=== PATIENT | female | born 1950 | race Caucasian/White ===

== ENCOUNTER → 2017-07-22 | Day surgery (SDC) | payer OTHER ==
[~2017-07-22] VITALS: Ht 160 cm; Wt 75.7 kg
--- NOTE | 2017-07-22 10:23 | Operative Report ---
Operative/Inv Procedure Report Surgery Date: 07/22/17 Name of Procedure: Laparoscopic cholecystectomy Pre-Operative Diagnosis: Symptomatic cholelithiasis Post-Operative Diagnosis: Same Estimated Blood Loss: less than 50ml Surgeon/[employer] Machine Operator: Shana Burdick MD Anesthesia: general endotracheal tube Specimens: Gallbladder Complications: None Condition: Stable to recovery room Operative Indication: Patient is a 66-year-old woman who was been diagnosed with symptomatic cholelithiasis. Patient presents today for elective laparoscopic cholecystectomy. All risks, benefits, and alternatives of the procedure were explained to the patient detail. She expressed understanding and agreement with the same. Operative/Procedure Note Note: Patient was taken to the operating room and placed in supine position on the operating table. Bilateral lower extremity SCDs were placed. Preoperative antibiotics, vancomycin and ciprofloxacin, due to patient's extensive allergies were given. Anesthesia was established by the anesthesia team. Orogastric tube was placed. The left arm was tucked. All appropriate pressure points were padded, and the patient was secured to the operating table. The timeout was carried out. The abdomen was prepped and draped in the standard surgical fashion. A supraumbilical transverse midline incision was made through skin and subcutaneous tissues to the level of fascia. The fascia was incised longitudinally and the abdomen was entered. A 12 mm Salmeron trocar was placed within the abdomen under direct visualization. The abdomen was insufflated to 15 mmHg. The patient tolerated insufflation well. 3 additional 5 mm trochars were placed along the right subcostal margin approximately 2 fingerbreadths below the rib cage. The gallbladder was visualized and retracted cephalad and medially. The slight omental attachments to the gallbladder were taken down using electrocautery. The neck of the gallbladder was identified. The medial and lateral peritoneal attachments to the neck of the gallbladder were taken down using electrocautery. Both the cystic artery and cystic duct with the cystic artery posterior branch were skeletonized and the critical view was obtained. All structures were clipped with 2 clips proximally 1 clip distally and transected using EndoShears. The gallbladder was taken off the liver fossa using electrocautery. It was placed within the Endobag and removed. The liver fossa was copiously irrigated and checked for hemostasis. The complete hemostasis was achieved using electrocautery. A piece of Surgicel was placed within the liver fossa. All trochars were removed under direct visualization. The supraumbilical incision was closed with two 0 Vicryl sutures. The incision was irrigated. All skin incisions were closed with 4-0 Monocryl subcuticular sutures. Sterile dressing was applied. The instrument and sponge counts were correct in the end of procedure. The patient tolerated the procedure well, was wakened up, and taken to the recovery room in stable condition. Findings: Cholelithiasis Discharge Disposition: home
== END ==
LOC: STS 03:50
DX: K80.10 Calculus of gallbladder with chronic cholecystitis without obstruction (principal)
CPT/HCPCS: J0131; J0744; J2250; J3370